=== PATIENT | female | born 1970 | race Caucasian/White ===

== ENCOUNTER 2017-05-12 19:28 | Emergency (ER) | payer OTHER ==
[2017-05-12] MEDS ORDERED: ONDANSETRON HCL 4 MG/2 ML VIAL ONE (19:56)
[2017-05-12] MEDS ORDERED: FENTANYL 100 MCG/2 ML VIAL ONE (19:56)
[2017-05-12] MEDS ORDERED: KETOROLAC TROMETHAMINE 30 MG/ML VIAL ONE (20:01)
--- NOTE | 2017-05-12 20:25 | CT REPORT ---
HISTORY: Fall from horse with midthoracic pain. COMPARISON: None. TECHNIQUE: This examination was performed using automated exposure control, adjustment of mA or kV according to patient size, and/or use of iterative reconstruction technique. Multiple contiguous axial slices wer e obtained through the thoracic spine without contrast, sagittal and coronal reformations were obtain ed. FINDINGS: There is an acute compression fracture of the T9 vertebral body with superior endplate deformity and approximately 25% depression of the superior endplate centrally. There is a small associated paraspin ous hematoma. There is no evidence of associated cortical retropulsion, neural foraminal narrowing or central canal compromise. The posterior elements are intact. There is no evidence of spinous process or transverse process frac ture. The visualized ribs are intact. The vertebral body height and alignment is otherwise well maint ained. There is smooth interlobular septal thickening at the apices, suggesting mild edema. There are depend ent atelectatic changes. The thyroid gland appears unremarkable. The heart is mildly enlarged. There is a pericardial effusion. There is a 3 mm calculus in the posterior midpole calyx of the right kidne y. There is no evidence of hydronephrosis. The visualized bowel viscera appear otherwise unremarkable . IMPRESSION: 1. Acute compression fracture of T9 with approximately 25% compression of the superior endplate centr ally and no significant cortical retropulsion or posterior element involvement. 2. Nonobstructing right-sided nephrolithiasis. 3. Smooth interlobular septal thickening at the lung apices suggests mild edema. Final Electronic Signature: This report was electronically signed by Ritesh Valverde MD on 7 8:23 PM. melissa /
--- NOTE | 2017-05-12 21:27 | ER PHYSICIAN DOCUMENTATION ---
Physician Documentation [facility] Name:Tracey Burton Age:47 yrs Sex:Female :1970 Arrival Date:05/12/2017 Time:19:28 BedTrauma-A Private MD: Stas De Luna Disposition: 05/12/17 20:32 Discharged to Home/Self Care. Impression: Thoracic Spine Compression Fracture. - Condition is Fair. - Discharge Instructions: Bone, Broken - FRACTURE, Vertebral Compression. - Prescriptions for Hydrocodone- Acetaminophen 5-325 mg Oral - take 1 tablet by ORAL route every 6 hours As needed; 40 tablet. - Medical Reconciliation form form. - Follow up: Private Physician; When: 1 week; Reason: Continuance of care. - Problem is new. - Symptoms have improved. HPI: 05/12 19:41 This 47 yrs old Female presents to ER via EMS with complaints of Fall Injury. sc 19:41 Details of fall: The patient fell from a height, horse. Onset: The symptom(s)/episode sc began/occurred today. Associated injuries: The patient sustained upper back injury, pain. Associated signs and symptoms: The patient has no apparent associated signs or symptoms, Pertinent negatives: abdominal pain, blurred vision, chest pain, headache, shortness of breath, tingling, weakness, Loss of consciousness: the patient experienced no loss of consciousness. Severity of symptoms: At their worst the symptoms were moderate. The patient has not experienced similar symptoms in the past. Historical: - Allergies: Tetracyclines; - Tetanus: < 10 years < 10 years. - Ebola Screening: : Patient denies exposure to infectious person. Patient denies travel to an Ebola-affected area in the 21 days before illness onset. . - Immunization history: Flu Vaccine None. - Social history: Smoking status: Patient states was never smoker of tobacco. Patient uses alcohol only on a social basis. ROS: 19:45 Constitutional: Negative for fever, chills, and weight loss. sc Eyes: Negative for injury, pain, redness, and discharge. ENT: Negative for injury, pain, and discharge. Neck: Negative for injury, pain, and swelling. Cardiovascular: Negative for chest pain, palpitations, and edema. Respiratory: Negative for shortness of breath, cough, wheezing, and pleuritic chest pain. Abdomen/GI: Negative for abdominal pain, nausea, vomiting, diarrhea, and constipation. Skin: Negative for injury, rash, and discoloration. 19:45 Neuro: Negative for headache, weakness, numbness, tingling, and seizure. sc 19:45 Back: Positive for injury or acute deformity. 19:45 MS/extremity: Negative for acute changes, injury or acute deformity. Exam: Constitutional: This is a well developed, well nourished patient who is awake, alert, and in no acute distress. Head/Face: Normocephalic, atraumatic. Eyes: Pupils equal round and reactive to light, extra-ocular motions intact. Lids and lashes normal. Conjunctiva and sclera are non-icteric and not injected. Cornea within normal limits. Periorbital areas with no swelling, redness, or edema. ENT: Nares patent. No nasal discharge, no septal abnormalities noted. Tympanic membranes are normal and external auditory canals are clear. Oropharynx with no redness, swelling, or masses, exudates, or evidence of obstruction, uvula midline. Mucous membranes moist. Neck: Trachea midline, no thyromegaly or masses palpated, and no cervical lymphadenopathy. Supple, full range of motion without nuchal rigidity, or vertebral point tenderness. No meningismus. Chest/axilla: Normal chest wall appearance and motion. Nontender with no deformity. No lesions are appreciated. Cardiovascular: Regular rate and rhythm with a normal S1 and S2. No gallops, murmurs, or rubs. Normal PMI, no JVD. No pulse deficits. Respiratory: Lungs have equal breath sounds bilaterally, clear to auscultation and percussion. No rales, rhonchi or wheezes noted. No increased work of breathing, no retractions or nasal flaring. Abdomen/GI: Soft, non-tender, with normal bowel sounds. No distension or tympany. No guarding or rebound. No evidence of tenderness throughout. Skin: Warm, dry with normal turgor. Normal color with no rashes, no lesions, and no evidence of cellulitis. MS/ Extremity: Pulses equal, no cyanosis. Neurovascular intact. Full, normal range of motion, negative Homans's, calves equal bilaterally. 19:45 Neuro: Awake and alert, GCS 15, oriented to person, place, time, and situation. hi Cranial nerves II-XII grossly intact. Motor strength 5/5 in all extremities. Sensory grossly intact. Cerebellar exam normal. Normal gait. 19:45 Back: pain, that is moderate, of the thoracic area, ROM is painful, normal spinal alignment noted, CVA tenderness, is absent, vertebral tenderness, is appreciated at T7, T8 and T9, muscle spasm, is not present, Straight leg raises: of both lower extremities does not illicit pain. Vital Signs: 19:38 BP 113 / 66; Pulse 70; Resp 19; Pulse Ox 93% on R/A; Weight 83.91 kg; Height 5 ft. 5 lb in. (165.10 cm); Pain 0/10; 20:38 BP 111 / 67; Pulse 70; Resp 15; lb 21:25 BP 110 / 60; Pulse 70; Resp 15; Pain 5/10; lb 19:38 Body Mass Index 30.79 (83.91 kg, 165.10 cm) lb Trauma Score (Adult): 19:38 Eye Response: spontaneous(1); Verbal Response: oriented(1); Motor Response: obeys lb commands(2); Systolic BP: > 89 mm Hg(4); Respiratory Rate: 10 to 29 per min(4); [place] Score: 15; Trauma Score: 12 MDM: 19:33 Patient medically screened. sc 19:46 Differential diagnosis: contusion, fracture, multiple trauma, sprain, strain. Data sc reviewed: vital signs, nurses notes, radiologic studies, CT scan, and as a result, I will continue to observe the patient, order radiologic studie(s), CT scan, prescribe pain medication. 05/12 20:26 Order name: CAT SCAN; THORACIC [id number] EDMS Dispensed Medications: 19:51 Drug: Toradol 30 mg; Route: IVP; Site: right hand; lb 20:17 Follow up: Response: Pain is decreased lb 21:22 Drug: HYDROcodone-acetaminophen (5mg/325 mg) 1-2 tabs 1 tabs; Route: PO; lb 21:22 Follow up: Response: Pharmacy closed - take home med pack lb Signatures: Stas Sharma MD MD hi Minnie Toussaint
--- NOTE | 2017-05-12 21:27 | ER NURSING DOCUMENTATION ---
Nurse's Notes [facility] Name:Tracey Burton Age:47 yrs Sex:Female :1970 Arrival Date:05/12/2017 Time:19:28 BedTrauma-A Private MD: Diagnosis:Thoracic Spine Compression Fracture Presentation: 05/12 19:34 Presenting complaint: EMS states: fell off horse, landed on buttocks. no LOC. c/o mid lb thoracic pain relieved with fentanyl per ems. removed from backboard on arrival by MD. Care prior to arrival: IV Fluids given by EMS NS 1000 ml Medication(s) given: Fentanyl 100MCG Zofran 8mgIVP. Mechanism of Injury: Fall horse an unknown distance. Trauma event details: Injury occurred in the [facility] Injury occurred trail ride Injury occurred May 12, 2017 Injury occurred at 18:30. Activity prior to arrival: Ambulatory @ scene. 19:34 Acuity: MOIRA 3 lb 19:34 Method Of Arrival: EMS: 410 lb 19:39 Transition of care: Camp. Notified ED Physician of Dr. Sharma notified. lb Historical: - Allergies: Tetracyclines; - Tetanus: < 10 years < 10 years. - Ebola Screening: : Patient denies exposure to infectious person. Patient denies travel to an Ebola-affected area in the 21 days before illness onset. . - Immunization history: Flu Vaccine None. - Social history: Smoking status: Patient states was never smoker of tobacco. Patient uses alcohol only on a social basis. Screenin:39 Abuse screen: Denies threats or abuse. Denies injuries from another. Nutritional lb screening: No deficits noted. Tuberculosis screening: No symptoms or risk factors identified. 19:41 Infectious Disease Risk None. lb Primary Survey: 19:38 Breathing/Chest: Respiratory pattern: regular, Respiratory effort: spontaneous, lb unlabored, Breath sounds: clear, bilaterally. Chest inspection: symmetrical rise and fall of the chest. Circulation: Cardiac rhythm: sinus rhythm Pulses: palpable right radial artery, right posterior tibial artery, left radial artery and left posterior tibial artery. Skin color: pink, Skin temperature: warm, dry. Assessment: 19:37 General: Appears in no apparent distress, Behavior is appropriate for age, pleasant. lb Pain: Complains of pain in thoracic area Pain does not radiate. Pain currently is 0 out of 10 on a pain scale. Alleviated by medications. Neuro: Level of Consciousness is awake, alert, Oriented to person, place, time, event, Systems Requirements Planner are equal bilaterally Moves all extremities. Gait is steady, Speech is normal, Facial symmetry appears normal, Pupils are PERRLA. EENT: No deficits noted. Cardiovascular: No deficits noted. Respiratory: Airway is patent Trachea midline Respiratory effort is even, unlabored, Respiratory pattern is regular, symmetrical, Breath sounds are clear bilaterally. GI: No deficits noted. Derm: No deficits noted. Musculoskeletal: No deficits noted. 20:37 Reassessment: attempted to sit pt up and ambulate, became lightheaded while sitting. lb placed back on bed, given nourishment. will monitor. Vital Signs: 19:38 BP 113 / 66; Pulse 70; Resp 19; Pulse Ox 93% on R/A; Weight 83.91 kg; Height 5 ft. 5 lb in. (165.10 cm); Pain 0/10; 20:38 BP 111 / 67; Pulse 70; Resp 15; lb 21:25 BP 110 / 60; Pulse 70; Resp 15; Pain 5/10; lb 19:38 Body Mass Index 30.79 (83.91 kg, 165.10 cm) lb Trauma Score (Adult): 19:38 Eye Response: spontaneous(1); Verbal Response: oriented(1); Motor Response: obeys lb commands(2); Systolic BP: > 89 mm Hg(4); Respiratory Rate: 10 to 29 per min(4); Ru Score: 15; Trauma Score: 12 ED Course: 19:30 Patient arrived in ED. dp 19:33 Stas Sharma MD is Attending Physician. sc 19:34 Minnie Toussaint is Primary Nurse. lb 19:37 Triage completed. lb 19:39 Valuables Remains with patient Patient has correct armband on for positive lb identification. Bed in low position. Call light in reach. Side rails up X2. Adult w/ patient. 19:51 Maintain field IV. Dressing intact. Site clean & dry. Gauge & site: # 18 right hand. lb 20:[address] tt 20:[address] from [address]. tt Administered Medications: 19:51 Drug: Toradol 30 mg; Route: IVP; Site: right hand; lb 20:17 Follow up: Response: Pain is decreased lb 21:22 Drug: HYDROcodone-acetaminophen (5mg/325 mg) 1-2 tabs 1 tabs; Route: PO; lb 21:22 Follow up: Response: Pharmacy closed - take home med pack Outcome: 20:32 Discharge ordered by . juan 21:25 Discharged to [facility] :25 Condition: improved 21:25 Discharge Assessment: Patient awake, alert and oriented x 3. No cognitive and/or functional deficits noted. Patient verbalized understanding of disposition instructions. 21:25 Instructed on discharge instructions, follow up and referral plans. no drinking with medication, no driving heavy equipment. 21:25 IV D/Alphonso 21:26 Patient left the ED. lb Signatures: Stas Sharma MD MD sc Terriere, Tracy tt Bollock, Lynda lb Palacios, Denise dp
== END 2017-05-12 21:27 | disposition home or self-care (01) ==
LOC: ER 19:28
DX: S22.078A Other fracture of T9-T10 vertebra, initial encounter for closed fracture (principal); V80.010A Animal-rider injured by fall from or being thrown from horse in noncollision accident, initial encounter; Y92.838 Other recreation area as the place of occurrence of the external cause; Y93.52 Activity, horseback riding; Z74.3 Need for continuous supervision
CPT/HCPCS: 72128; 96374; 99284; J1885; J2405; J3010